=== PATIENT | male | born 1940 | race Caucasian/White ===

== ENCOUNTER → 2018-09-25 | Outpatient (CLI) | payer MEDICARE, BC ==
[~2018-09-25] MED LIST: ACTOS; ADVODART; ALBU90OI INH; ASPI81EC PO; ATOM60 PO; Aspirin EC81 MG PO; Avodart0.5 MG PO; BUDE32NIS; CALMAGZIN PO; CAND16 PO; CAND32 PO; CYCL10 PO; ERGO400 PO; EZET10 PO; FARXIGA10 MG PO; FEXO180 PO; FLUSAL1005 IH; GABA300 PO; GLIM4 PO; HYDMOR2 PO; INSULANPEN SC; LIRA0.6P SC; METF500C PO; METF850 PO; METO50ER PO; MULVITMINF PO; NITR.4SL; Nitrostat0.4 MG SL; OMEP20ER PO; ONDA8 PO; Omeprazole20 M1 PO; PRAV20 PO; Percocet 5-3251 EACH PO; Pravastatin Sod40 MG PO; Prilosec20 MG PO; RXHYDMOR2 PO; TAMS.4ER PO
[2018-09-25 10:56] LABS: BASOPHILS ABSOLUTE AUTO 0.03 K/mm3 (0.00-0.23); BASOPHILS PERCENT AUTO 1 % (0-2); EOSINOPHILS ABSOLUTE AUTO 0.08 K/mm3 (0.00-0.68); EOSINOPHILS PERCENT AUTO 1 % (0-6); Hematocrit 42.4 % (37.0-53.0); IMMATURE GRAN ABSOLUTE AUTO 0.02 K/mm3 (0.00-0.10); IMMATURE GRAN PERCENT AUTO 0 % (0-1); LYMPHOCYTES ABSOLUTE AUTO 1.08 K/mm3 (0.84-5.20); LYMPHOCYTES PERCENT AUTO 19 % (21-46); MONOCYTES ABSOLUTE AUTO 0.49 K/mm3 (0.16-1.47); MONOCYTES PERCENT AUTO 9 % (4-13); Mean Corpuscular HGB Conc 35.4 g/dL (31.5-36.5); Mean Corpuscular Volume 90 fL (80-100); Mean Platelet Volume 9.6 fL (9.1-12.4); NEUTROPHILS ABSOLUTE AUTO 3.96 K/mm3 (1.96-9.15); NEUTROPHILS PERCENT AUTO 70 % (41-73); Platelet Count 146 K/mm3 (150-400); RDW Coefficient Variation 12.3 % (11.7-14.2); Red Blood Cell Count 4.69 M/mm3 (4.30-5.90); White Blood Cell Count 5.66 K/mm3 (4.00-11.30)
[2018-09-25 11:09] LABS: Anion Gap 10 mmol/L (6-16); Blood Urea Nitrogen 15 mg/dL (8-24); Bun/Creatinine Ratio 12.9 (12.0-20.0); CO2, Blood 27 mmol/L (21-32); Calcium, Blood 9.2 mg/dL (8.5-10.1); Chloride, Blood 100 mmol/L (98-108); Creatinine, Blood 1.16 mg/dL (0.60-1.20); Glomerular Filtration Rate >60 (60-); Glucose, Blood 246 mg/dL (70-99); Potassium, Blood 4.3 mmol/L (3.5-5.5); Sodium, Blood 137 mmol/L (136-145)
[2018-09-25 11:10] LABS: Troponin I <0.015 ng/mL (0.000-0.040)
== END | disposition home or self-care (01) ==
LOC: LAB EV 10:51 → LAB SHORT 10:51
PROVIDERS: Physician Assistant Surgical
DX: R53.83 Other fatigue (principal)
CPT/HCPCS: 80048; 84484; 85025; 85379

== ENCOUNTER 2018-10-14 13:03 | Emergency (ER) | payer MEDICARE, BC ==
[~2018-10-14] VITALS: Ht 182.9 cm; Wt 97.1 kg
[~2018-10-14 13:03] MED LIST changes: -Aspirin EC81 MG PO; -Avodart0.5 MG PO; -CAND16 PO; -CYCL10 PO; -INSULANPEN SC; -METF500C PO; -METO50ER PO; -NITR.4SL; -ONDA8 PO; -Omeprazole20 M1 PO; -PRAV20 PO; -Percocet 5-3251 EACH PO
[2018-10-14] MEDS ORDERED: ATOM60 PO (13:30)
[2018-10-14] MEDS ORDERED: Aspirin EC81 MG PO (13:30)
[2018-10-14] MEDS ORDERED: Avodart0.5 MG PO (13:31)
[2018-10-14] MEDS ORDERED: CAND16 PO (13:31)
[2018-10-14] MEDS ORDERED: CYCL10 PO (13:31)
[2018-10-14] MEDS ORDERED: EZET10 PO (13:32)
[2018-10-14] MEDS ORDERED: GABA300 PO (13:32)
[2018-10-14] MEDS ORDERED: METF500C PO (13:33)
[2018-10-14] MEDS ORDERED: GLIM4 PO (13:33)
[2018-10-14] MEDS ORDERED: INSULANPEN SC (13:33)
[2018-10-14] MEDS ORDERED: ONDA8 PO (13:34)
[2018-10-14] MEDS ORDERED: METO50ER PO (13:34)
[2018-10-14] MEDS ORDERED: NITR.4SL (13:34)
[2018-10-14] MEDS ORDERED: PRAV20 PO (13:34)
[2018-10-14] MEDS ORDERED: Omeprazole20 M1 PO (13:34)
[2018-10-14] MEDS ORDERED: TAMS.4ER PO (13:35)
[2018-10-14 13:45] LABS: BASOPHILS ABSOLUTE AUTO 0.03 K/mm3 (0.00-0.23); BASOPHILS PERCENT AUTO 1 % (0-2); EOSINOPHILS PERCENT AUTO 2 % (0-6); Hematocrit 40.4 % (37.0-53.0); Hemoglobin 13.7 g/dL (13.5-17.5); IMMATURE GRAN ABSOLUTE AUTO 0.03 K/mm3 (0.00-0.10); IMMATURE GRAN PERCENT AUTO 1 % (0-1); LYMPHOCYTES PERCENT AUTO 23 % (21-46); MONOCYTES ABSOLUTE AUTO 0.59 K/mm3 (0.16-1.47); MONOCYTES PERCENT AUTO 11 % (4-13); Mean Corpuscular HGB 31.6 pg (26.0-34.0); Mean Corpuscular HGB Conc 33.9 g/dL (31.5-36.5); Mean Corpuscular Volume 93 fL (80-100); NEUTROPHILS ABSOLUTE AUTO 3.28 K/mm3 (1.96-9.15); NEUTROPHILS PERCENT AUTO 63 % (41-73); Platelet Count 150 K/mm3 (150-400); RDW Standard Deviation 41.3 fL (35.1-46.3); Red Blood Cell Count 4.33 M/mm3 (4.30-5.90); White Blood Cell Count 5.23 K/mm3 (4.00-11.30)
[2018-10-14 14:02] LABS: Alanine Aminotransfer (ALT/SGP 41 U/L (12-78); Albumin, Blood 3.5 g/dL (3.4-5.0); Albumin/Globulin Ratio 1.1 (0.8-1.8); Alk Phos 87 U/L (50-136); Anion Gap 8 mmol/L (6-16); Aspartate Aminotrans (AST/SGOT 21 U/L (12-37); Bilirubin, Total 0.3 mg/dL (0.1-1.0); Blood Urea Nitrogen 16 mg/dL (8-24); Bun/Creatinine Ratio 15.8 (12.0-20.0); CO2, Blood 26 mmol/L (21-32); Calcium, Blood 8.3 mg/dL (8.5-10.1); Chloride, Blood 103 mmol/L (98-108); Creatinine, Blood 1.01 mg/dL (0.60-1.20); Globulin, Blood 3.1 g/dL (2.2-4.0); Glomerular Filtration Rate >60 (60-); Glucose, Blood 246 mg/dL (70-99); Potassium, Blood 4.5 mmol/L (3.5-5.5); Sodium, Blood 137 mmol/L (136-145); Total Protein, Blood 6.6 g/dL (6.4-8.2)
[2018-10-14 14:06] LABS: Troponin I <0.015 ng/mL (0.000-0.040)
[2018-10-14] MEDS ORDERED: Percocet 5-3251 EACH PO (15:34)
== END 2018-10-14 16:05 | disposition home or self-care (01) ==
LOC: ER 13:03
PROVIDERS: Emergency Medicine
DX: R07.89 Other chest pain (principal); E11.65 Type 2 diabetes mellitus with hyperglycemia; J44.9 Chronic obstructive pulmonary disease, unspecified; Z88.6 Allergy status to analgesic agent; Z79.899 Other long term (current) drug therapy; Z79.84 Long term (current) use of oral hypoglycemic drugs; Z79.82 Long term (current) use of aspirin; Z87.891 Personal history of nicotine dependence
CPT/HCPCS: 71046; 80053; 83690; 84484; 85025; 85379; 93005; 93010; 96361; 96374; 96375; 99285-25; J0780; J1170; J2405; J7030

== ENCOUNTER 2019-03-10 08:22 | Day surgery (SDC) | payer MEDICARE, BC ==
[~2019-03-10] VITALS: Ht 182.9 cm; Wt 98.9 kg
[~2019-03-10 08:22] MED LIST changes: +Aspirin EC81 MG PO; +Avodart0.5 MG PO; +CAND16 PO; +CYCL10 PO; +INSULANPEN SC; +METF500C PO; +METO50ER PO; +Metformin HCl850 MG PO; +NITR.4SL; +ONDA8 PO; +Omeprazole20 M1 PO; +PRAV20 PO; +Percocet 5-3251 EACH PO; +Pravachol40 MG PO
== END 2019-03-10 11:27 | disposition home or self-care (01) ==
LOC: ORSCSDS 08:22
PROVIDERS: Internal Medicine Gastroenterology
PROC: 0DB68ZX Excision of Stomach, Via Natural or Artificial Opening Endoscopic, Diagnostic (ICD-10-PCS; principal; 2019-03-10 10:00)
PROC: 0DBN8ZX Excision of Sigmoid Colon, Via Natural or Artificial Opening Endoscopic, Diagnostic (ICD-10-PCS; principal; 2019-03-10 10:00)
PROC: 0DBH8ZX Excision of Cecum, Via Natural or Artificial Opening Endoscopic, Diagnostic (ICD-10-PCS; principal; 2019-03-10 10:00)
PROC: 0DBK8ZX Excision of Ascending Colon, Via Natural or Artificial Opening Endoscopic, Diagnostic (ICD-10-PCS; principal; 2019-03-10 10:00)
DX: R19.7 Diarrhea, unspecified (principal); D12.0 Benign neoplasm of cecum; D12.2 Benign neoplasm of ascending colon; K63.5 Polyp of colon; K55.20 Angiodysplasia of colon without hemorrhage; K57.30 Diverticulosis of large intestine without perforation or abscess without bleeding; Z86.010 Personal history of colon polyps; K22.70 Barrett's esophagus without dysplasia; K29.70 Gastritis, unspecified, without bleeding; K21.9 Gastro-esophageal reflux disease without esophagitis; K31.7 Polyp of stomach and duodenum; I10 Essential (primary) hypertension; E11.9 Type 2 diabetes mellitus without complications; Z87.891 Personal history of nicotine dependence; Z79.899 Other long term (current) drug therapy; Z79.82 Long term (current) use of aspirin
CPT/HCPCS: 82947; 88305; 88342; J2704; J7120

== ENCOUNTER 2019-09-06 07:28 | Emergency (ER) | payer MEDICARE, BC ==
[~2019-09-06] VITALS: Ht 182.9 cm; Wt 99.8 kg
[~2019-09-06 07:28] MED LIST changes: +INSDET100 SC; -INSULANPEN SC
[2019-09-06] MEDS ORDERED: ATOMOXETINE HCL80 MG PO (07:57)
[2019-09-06 08:18] LABS: Source, Urine Voided
[2019-09-06 08:23] LABS: BASOPHILS ABSOLUTE AUTO 0.04 K/mm3 (0.00-0.23); BASOPHILS PERCENT AUTO 1 % (0-2); EOSINOPHILS ABSOLUTE AUTO 0.11 K/mm3 (0.00-0.68); EOSINOPHILS PERCENT AUTO 2 % (0-6); Hematocrit 45.4 % (37.0-53.0); Hemoglobin 15.7 g/dL (13.5-17.5); IMMATURE GRAN ABSOLUTE AUTO 0.02 K/mm3 (0.00-0.10); IMMATURE GRAN PERCENT AUTO 0 % (0-1); LYMPHOCYTES ABSOLUTE AUTO 1.03 K/mm3 (0.84-5.20); LYMPHOCYTES PERCENT AUTO 16 % (21-46); MONOCYTES ABSOLUTE AUTO 0.53 K/mm3 (0.16-1.47); MONOCYTES PERCENT AUTO 8 % (4-13); Mean Corpuscular HGB 31.6 pg (26.0-34.0); Mean Corpuscular HGB Conc 34.6 g/dL (31.5-36.5); Mean Corpuscular Volume 91 fL (80-100); NEUTROPHILS PERCENT AUTO 73 % (41-73); Platelet Count 155 K/mm3 (150-400); RDW Coefficient Variation 12.1 % (11.7-14.2); Red Blood Cell Count 4.97 M/mm3 (4.30-5.90); White Blood Cell Count 6.43 K/mm3 (4.00-11.30)
[2019-09-06 08:25] LABS: Blood, Urine Neg (Neg); Glucose Qualitative, Urine 3+ (Neg); Ketones, Urine Neg (Neg); Leukocyte Esterase, Urine Neg (Neg); Nitrite, Urine Pos (Neg); Protein, Urine 2+ (Neg); Urobilinogen, Urine 2+ (Normal)
[2019-09-06 08:30] LABS: Appearance, Urine Hazy (Clear); Bilirubin, Urine 1+ (Neg); Color, Urine Amber (P-Yellow)
[2019-09-06 08:36] LABS: Bacteria Rare /hpf; Red Blood Cells, Urine Not Seen /hpf (0-2); Squamous Epithelial Cells Rare /hpf (Few); White Blood Cells, Urine 0-2 /hpf (0-5)
[2019-09-06 08:48] LABS: Alanine Aminotransfer (ALT/SGP 67 U/L (12-78); Albumin, Blood 3.6 g/dL (3.4-5.0); Alk Phos 86 U/L (50-136); Anion Gap 10 mmol/L (6-16); Aspartate Aminotrans (AST/SGOT 45 U/L (12-37); Bilirubin, Total 0.5 mg/dL (0.1-1.0); Blood Urea Nitrogen 20 mg/dL (8-24); Bun/Creatinine Ratio 19.2 (12.0-20.0); CO2, Blood 23 mmol/L (21-32); Chloride, Blood 103 mmol/L (98-108); Creatinine, Blood 1.04 mg/dL (0.60-1.20); Globulin, Blood 3.7 g/dL (2.2-4.0); Glomerular Filtration Rate >60 (60-); Glucose, Blood 291 mg/dL (70-99); Potassium, Blood 4.6 mmol/L (3.5-5.5); Sodium, Blood 136 mmol/L (136-145); Total Protein, Blood 7.3 g/dL (6.4-8.2)
[2019-09-06] MEDS ORDERED: HYDR1TAB94 PO (09:22)
[2019-09-06] MEDS ORDERED: Cefdinir250 MG/5 M PO (09:22)
== END 2019-09-06 10:16 | disposition home or self-care (01) ==
LOC: ER 07:28
PROVIDERS: Emergency Medicine
DX: R10.31 Right lower quadrant pain (principal); Z88.8 Allergy status to other drugs, medicaments and biological substances; Z79.899 Other long term (current) drug therapy; Z79.82 Long term (current) use of aspirin; Z79.4 Long term (current) use of insulin; E11.9 Type 2 diabetes mellitus without complications; J44.9 Chronic obstructive pulmonary disease, unspecified; Z87.891 Personal history of nicotine dependence
CPT/HCPCS: 36415; 74176; 80053; 81001; 85025; 87086; 96361; 96365; 99284-25; A9270-GY; J0696; J7120

== ENCOUNTER → 2021-07-26 | Outpatient (CLI) | payer MEDICARE, BC ==
[~2021-07-26] MED LIST changes: +ATOMOXETINE HCL80 MG PO; +Cefdinir250 MG/5 M PO; +HYDR1TAB94 PO
== END | disposition home or self-care (01) ==
LOC: LAB 11:23 → LAB SHORT 11:23
DX: J32.9 Chronic sinusitis, unspecified (principal)
CPT/HCPCS: 87070; 87205

== ENCOUNTER → 2022-02-19 | Outpatient (CLI) | payer MEDICARE, BC | LOC: LAB SHORT 15:15 → PLD 15:15 → LAB 15:15 | DX: D48.5 Neoplasm of uncertain behavior of skin (principal) | CPT/HCPCS: 88305 ==

== ENCOUNTER 2022-03-18 09:13 | Day surgery (SDC) | payer MEDICARE, BC | END 2022-03-18 09:42 | disposition home or self-care (01) | LOC: ORSCSDS 09:13 | DX: K22.70 Barrett's esophagus without dysplasia (principal); Z53.9 Procedure and treatment not carried out, unspecified reason | CPT/HCPCS: J2704; J7120 ==

== ENCOUNTER → 2022-05-17 | Outpatient (CLI) | payer MEDICARE, BC ==
[2022-05-17 08:32] LABS: BASOPHILS ABSOLUTE AUTO 0.05 K/mm3 (0.00-0.23); BASOPHILS PERCENT AUTO 1 % (0-2); EOSINOPHILS ABSOLUTE AUTO 0.63 K/mm3 (0.00-0.68); EOSINOPHILS PERCENT AUTO 8 % (0-6); Hematocrit 43.4 % (37.0-53.0); Hemoglobin 15.3 g/dL (13.5-17.5); IMMATURE GRAN ABSOLUTE AUTO 0.06 K/mm3 (0.00-0.10); IMMATURE GRAN PERCENT AUTO 1 % (0-1); LYMPHOCYTES ABSOLUTE AUTO 1.19 K/mm3 (0.84-5.20); LYMPHOCYTES PERCENT AUTO 15 % (21-46); MONOCYTES ABSOLUTE AUTO 0.71 K/mm3 (0.16-1.47); MONOCYTES PERCENT AUTO 9 % (4-13); Mean Corpuscular HGB 32.3 pg (26.0-34.0); Mean Corpuscular HGB Conc 35.3 g/dL (31.5-36.5); Mean Corpuscular Volume 92 fL (80-100); Mean Platelet Volume 9.6 fL (9.1-12.4); NEUTROPHILS ABSOLUTE AUTO 5.59 K/mm3 (1.96-9.15); NEUTROPHILS PERCENT AUTO 68 % (41-73); Platelet Count 144 K/mm3 (150-400); RDW Coefficient Variation 13.4 % (11.7-14.2); RDW Standard Deviation 44.8 fL (35.1-46.3); Red Blood Cell Count 4.73 M/mm3 (4.30-5.90); White Blood Cell Count 8.23 K/mm3 (4.00-11.30)
[2022-05-17 08:40] LABS: Albumin, Blood 3.7 g/dL (3.4-5.0); Bilirubin, Total 0.6 mg/dL (0.1-1.0); Bun/Creatinine Ratio 7.9 (12.0-20.0); Creatinine, Blood 1.14 mg/dL (0.60-1.20); Globulin, Blood 3.7 g/dL (2.2-4.0); Potassium, Blood 3.9 mmol/L (3.5-5.5); Total Protein, Blood 7.4 g/dL (6.4-8.2)
== END ==
LOC: LAB SHORT 08:24 → LAB 08:24
PROVIDERS: Physician Assistant
DX: R06.00 Dyspnea, unspecified (principal)
CPT/HCPCS: 80053; 83880; 84443; 85025; 85379

== ENCOUNTER 2022-08-31 12:14 | Emergency (ER) | payer MEDICARE, BC ==
[~2022-08-31] VITALS: Ht 182.9 cm; Wt 88.0 kg
[2022-08-31] MEDS ORDERED: Neurontin 300300 MG PO (15:23)
== END 2022-08-31 15:35 | disposition home or self-care (01) ==
LOC: ER 12:14
DX: B02.9 Zoster without complications (principal); J44.9 Chronic obstructive pulmonary disease, unspecified; E11.9 Type 2 diabetes mellitus without complications; Z88.8 Allergy status to other drugs, medicaments and biological substances; Z79.82 Long term (current) use of aspirin; Z79.4 Long term (current) use of insulin; Z79.899 Other long term (current) drug therapy; Z79.84 Long term (current) use of oral hypoglycemic drugs; Z87.891 Personal history of nicotine dependence
CPT/HCPCS: 99283

== ENCOUNTER 2024-03-09 14:32 | Inpatient (IN) | payer MEDICARE, BC ==
[~2024-03-09] VITALS: Ht 182.9 cm; Wt 88.5 kg
[~2024-03-09 14:32] MED LIST changes: -NITR.4SL; +NITR.4SL SL; +Neurontin 300300 MG PO; -Omeprazole20 M1 PO
[2024-03-09 15:00] LABS: BASOPHILS PERCENT AUTO 1 % (0-2); EOSINOPHILS ABSOLUTE AUTO 1.06 K/mm3 (0.00-0.68); EOSINOPHILS PERCENT AUTO 7 % (0-6); Hematocrit 45.5 % (37.0-53.0); Hemoglobin 15.1 g/dL (13.5-17.5); IMMATURE GRAN ABSOLUTE AUTO 0.16 K/mm3 (0.00-0.10); IMMATURE GRAN PERCENT AUTO 1 % (0-1); LYMPHOCYTES PERCENT AUTO 11 % (21-46); MONOCYTES ABSOLUTE AUTO 1.75 K/mm3 (0.16-1.47); MONOCYTES PERCENT AUTO 12 % (4-13); Mean Corpuscular HGB 33.6 pg (26.0-34.0); Mean Corpuscular HGB Conc 33.2 g/dL (31.5-36.5); Mean Corpuscular Volume 101 fL (80-100); Mean Platelet Volume 9.6 fL (9.1-12.4); NEUTROPHILS PERCENT AUTO 68 % (41-73); Platelet Count 196 K/mm3 (150-400); RDW Coefficient Variation 14.8 % (11.7-14.2); RDW Standard Deviation 54.9 fL (35.1-46.3); White Blood Cell Count 15.07 K/mm3 (4.00-11.30)
[2024-03-09 15:18] LABS: Albumin/Globulin Ratio 0.7 (0.8-1.8); Bilirubin, Total 1.2 mg/dL (0.1-1.0); Bun/Creatinine Ratio 9.5 (12.0-20.0); Calcium, Blood 8.9 mg/dL (8.5-10.1); Creatinine, Blood 0.95 mg/dL (0.60-1.20); Globulin, Blood 4.5 g/dL (2.2-4.0); Potassium, Blood 3.9 mmol/L (3.5-5.5); Total Protein, Blood 7.5 g/dL (6.4-8.2)
[2024-03-09 17:09] LABS: Influenza A, PCR NEGATIVE (NEGATIVE); Influenza B, PCR NEGATIVE (NEGATIVE); Resp Syncytial Virus, PCR NEGATIVE (NEGATIVE); SARS-Cov-2 (COVID-19) PCR, MMC NEGATIVE (NEGATIVE)
[2024-03-09] MEDS ORDERED: NS 1,000 ML IV SCH ×2 (17:35→19:00)
[2024-03-09 17:52] LABS: Base Excess Venous 0.9 mmol/L; Bicarbonate Venous 23.8 mmol/L (24.0-30.0); PCO2 Venous 57.4 mmHg (38-42); pH Blood Venous 7.29 (7.34-7.37)
[2024-03-09] MEDS ORDERED: Albuterol 2.5 MG/3 ML VIAL INH SCH (18:05)
[2024-03-09] MEDS ORDERED: PredniSONE 20 MG Tab PO ONE (18:20)
[2024-03-09] MEDS ORDERED: Azithromycin 500 MG in NS 250 ML IV ONE (18:25)
[2024-03-09] MEDS ORDERED: OxyCODONE HCL 5 MG TAB PO PRN (19:00)
[2024-03-09] MEDS ORDERED: Albuterol 2.5 MG/3 ML VIAL INH PRN (19:05)
[2024-03-09] MEDS ORDERED: Ipratropium/Albuterol SulF 2.5-0.5MG/3 ML Amp INH SCH (19:05)
[2024-03-09] MEDS ORDERED: Ondansetron HCl 2 MG / ML 2ML Vial IV PRN (19:05)
[2024-03-09] MEDS ORDERED: Acetaminophen 325 MG TABLET PO PRN (19:05)
[2024-03-09] MEDS ORDERED: NS 1,000 ML IV ONE (20:00)
[2024-03-09] MEDS ORDERED: Sennosides 8.6 MG Tab PO SCH (21:00)
[2024-03-09] MEDS ORDERED: Omeprazole 20 MG CapCR PO SCH (21:00)
[2024-03-09] MEDS ORDERED: Gabapentin 300 MG Cap PO SCH ×2 (21:00)
[2024-03-09] MEDS ORDERED: Insulin Glargine-Yfgn 100 Unit/mL 3 ML SYR SC SCH (21:00)
[2024-03-09 21:24] VITALS: BP 130/81
[2024-03-09] MEDS ORDERED: CYMBALTA30 M2 PO (22:10)
[2024-03-09] MEDS ORDERED: TRESIBA FL100 UNIT/2 SC (22:12)
[2024-03-09] MEDS ORDERED: CYCL10 PO (22:13)
[2024-03-09] MEDS ORDERED: ROSUVASTATIN CAL5 MG PO (22:14)
[2024-03-09] MEDS ORDERED: OFEV150 MG PO (22:15)
[2024-03-09] MEDS ORDERED: Lyrica300 MG PO (22:15)
[2024-03-09] MEDS ORDERED: METFORMIN HCL500 M3 PO (22:17)
[2024-03-09] MEDS ORDERED: Pregabalin 75 MG Cap PO SCH (23:00)
[2024-03-10 02:47] VITALS: BP 143/96
[2024-03-10 05:08] LABS: BASOPHILS ABSOLUTE AUTO 0.02 K/mm3 (0.00-0.23); BASOPHILS PERCENT AUTO 0 % (0-2); EOSINOPHILS ABSOLUTE AUTO 0.02 K/mm3 (0.00-0.68); EOSINOPHILS PERCENT AUTO 0 % (0-6); Hematocrit 41.3 % (37.0-53.0); Hemoglobin 13.7 g/dL (13.5-17.5); IMMATURE GRAN ABSOLUTE AUTO 0.14 K/mm3 (0.00-0.10); IMMATURE GRAN PERCENT AUTO 2 % (0-1); LYMPHOCYTES ABSOLUTE AUTO 0.86 K/mm3 (0.84-5.20); LYMPHOCYTES PERCENT AUTO 9 % (21-46); MONOCYTES ABSOLUTE AUTO 0.23 K/mm3 (0.16-1.47); MONOCYTES PERCENT AUTO 3 % (4-13); Mean Corpuscular HGB 33.3 pg (26.0-34.0); Mean Corpuscular HGB Conc 33.2 g/dL (31.5-36.5); Mean Corpuscular Volume 100 fL (80-100); Mean Platelet Volume 9.8 fL (9.1-12.4); NEUTROPHILS ABSOLUTE AUTO 7.98 K/mm3 (1.96-9.15); NEUTROPHILS PERCENT AUTO 86 % (41-73); Platelet Count 175 K/mm3 (150-400); RDW Coefficient Variation 14.5 % (11.7-14.2); RDW Standard Deviation 53.4 fL (35.1-46.3); Red Blood Cell Count 4.12 M/mm3 (4.30-5.90); White Blood Cell Count 9.25 K/mm3 (4.00-11.30)
[2024-03-10 05:20] LABS: International Normalized Ratio 1.01; Prothrombin Time Results 10.8 Sec (9.7-11.5)
[2024-03-10 05:38] LABS: Magnesium, Blood 2.3 mg/dL (1.6-2.4)
[2024-03-10 05:39] LABS: Albumin, Blood 2.6 g/dL (3.4-5.0); Albumin/Globulin Ratio 0.7 (0.8-1.8); Bilirubin, Total 1.1 mg/dL (0.1-1.0); Bun/Creatinine Ratio 15.9 (12.0-20.0); Calcium, Blood 8.4 mg/dL (8.5-10.1); Creatinine, Blood 0.82 mg/dL (0.60-1.20); Globulin, Blood 3.8 g/dL (2.2-4.0); Potassium, Blood 4.8 mmol/L (3.5-5.5); Total Protein, Blood 6.4 g/dL (6.4-8.2)
[2024-03-10] MEDS ORDERED: Insulin Human Lispro 100 Units/ML 3ML Syringe SC SCH ×2 (07:30→17:20)
[2024-03-10 07:49] VITALS: BP 143/73
--- NOTE | 2024-03-10 07:54 | NUR ---
SHIFT SUMMARY PT ARRIVED TO ROOM 310 FROM ER VIA GURNEY AROUND 2129. PT TRANSFERED TO HOSPITAL BED, SBA. PT USES A CANE AT BASELINE. PT IS A&OX4, FORGETFUL AT TIMES. PT IS VERY ANXIOUS. VSS, HR TACHY AT 103 BPM, ON 2L NC. C/O GENERALIZED PAIN, MANAGED WITH TYLENOL. TOLERATING A CONS CARB DIET. ELEVATED BG, >300. X1 ASSIST TO BR. PT HAS URGENCY AND IS OCCASIONALLY INCONTINENT OF URINE, BRIEF IN PLACE. NO BM THIS SHIFT. BED IN LOWEST POSITION, CALL LIGHT WITHIN REACH. BED ALARM SET FOR PT'S SAFETY.
[2024-03-10] MEDS ORDERED: Dutasteride 0.5 MG Cap PO SCH (09:00)
[2024-03-10] MEDS ORDERED: Pravastatin Sodium 20 MG Tab PO SCH (09:00)
[2024-03-10] MEDS ORDERED: DULoxetine HCL 60 MG Capsule DR PO SCH (09:00)
[2024-03-10] MEDS ORDERED: Tamsulosin HCl 0.4 MG Cap PO SCH (09:00)
[2024-03-10] MEDS ORDERED: Atomoxetine HCL 40 MG Cap PO SCH (09:00)
[2024-03-10] MEDS ORDERED: Ezetimibe 10 MG Tab PO SCH (09:00)
[2024-03-10] MEDS ORDERED: Metoprolol Succinate 50 MG TABCR PO SCH (09:00)
[2024-03-10] MEDS ORDERED: Losartan Potassium 50 MG Tab PO SCH (09:00)
[2024-03-10] MEDS ORDERED: Rosuvastatin Calcium 10 MG Tab PO SCH (09:00)
--- NOTE | 2024-03-10 10:05 | NUR ---
PT RETURNED FROM THORACENTESIS- PT STATES HE FEELS A LOT BETTER. PER REPORT FROM IMAGING 1L OF FLUID WAS DRAINED FROM THE PT LEFT CHEST. FLUID SENT TO LAB FOR CYTOLOGY AND OTHER LABS. SPOKE TO GRAIN MILL WORKER AFTER COLLECTING ORDER FOR PH THEY HAVE THE SAMPLE AND ALL THE ORDERS FOR IT.
[2024-03-10 10:11] LABS: Automated BF RBC Count 0.042 M/mm3 (0-0); Automated BF WBC Count 0.905 K/mm3 (0-999)
[2024-03-10 10:19] LABS: Body Fluid WBC Count 905 /mm3 (0-999); RBC Count, Body Fluid 42000 /mm3 (0-0)
[2024-03-10 10:25] LABS: Lactate Dehydrogenase, Body Fl 211 U/L
[2024-03-10 10:45] LABS: Protein, Body Fluid 4.6 g/dL
[2024-03-10 11:17] LABS: Total Cell Count, Body Fluid 100
[2024-03-10 11:21] LABS: Appearance, Body Fluid Cloudy (Clear); Color, Body Fluid Red (None-Yellow)
[2024-03-10] MEDS ORDERED: Insulin Glargine-Yfgn 100 Unit/mL 3 ML SYR SC ONE (12:00)
--- NOTE | 2024-03-10 12:04 | NUR ---
SPOKE TO DR BENAVIDES- PT BG 353. PT BG HAS BEEN OVER 300 ON ALL CHECKS. SHE IS AWARE AND IS ORDERING ADDITIONAL DOSE OF LANTUS NOW.
[2024-03-10 15:21] VITALS: BP 96/60
[2024-03-10 15:45] VITALS: BP 96/56
--- NOTE | 2024-03-10 15:46 | NUR ---
CALLED DR DANIELS- PT BP ON EVENING VITALS WAS FAR BELOW WHAT IT HAS BEEN SINCE ADMIT, SE REQUESTED A MANUAL BP DONE. MANUAL BP 96/56. PT ASYMPTOMATIC. THE PT IS POST THORACENTESIS, WHERE 1L OF FLUID WAS REMOVED, WAS NOTIFIED. CALLED DR PUGH BACK AFTER MANUAL BP AWAITING CALL BACK.
[2024-03-10] MEDS ORDERED: Omeprazole 20 MG CapCR PO SCH (16:30)
[2024-03-10 16:56] VITALS: BP 99/59
--- NOTE | 2024-03-10 17:01 | NUR ---
CALLED DR DANIELS- PT SBP PERSISTENTLY LESS THAN 100, BG IS PERSISTENTLY GREATER THAN 300. 363 THIS EVENING AFTER AN ADDITIONAL 15 UNITS OF LANTUS. AWARE AND IS PLACING ORDERS NOW.
[2024-03-10] MEDS ORDERED: Insulin Glargine-Yfgn 100 Unit/mL 3 ML SYR SC SCH (18:00)
--- NOTE | 2024-03-10 18:18 | NUR ---
SHIFT SUMMARY- PT ALERT AND ORIENTED WITH SOME OCCASSIONAL CONFUSION AND A FLIGHT OF IDEAS WITH RAMBLING SPEECH. PT WENT FOR A THORACENTESIS EARLIER TODAY, PLAN IS FOR A US GUIDED NEEDLE POKE BIOPSY TOMORROW. PT HAS ORDERS FOR NPO AT NOON. BG'S HAVE BEEN HIGH, INSULIN DOSES CHANGED SEE EMAR FOR DETAILS. BED ALARM USED FOR SAFETY, PT IN BED, CALL LIGHT IN REACH NO S&S OF DISTRESS NOTED.
[2024-03-10 20:23] VITALS: BP 111/56
[2024-03-11 04:40] VITALS: BP 114/70
[2024-03-11 04:57] LABS: BASOPHILS ABSOLUTE AUTO 0.03 K/mm3 (0.00-0.23); BASOPHILS PERCENT AUTO 0 % (0-2); EOSINOPHILS ABSOLUTE AUTO 0.64 K/mm3 (0.00-0.68); EOSINOPHILS PERCENT AUTO 5 % (0-6); Hematocrit 36.4 % (37.0-53.0); Hemoglobin 12.1 g/dL (13.5-17.5); IMMATURE GRAN ABSOLUTE AUTO 0.11 K/mm3 (0.00-0.10); IMMATURE GRAN PERCENT AUTO 1 % (0-1); LYMPHOCYTES ABSOLUTE AUTO 1.53 K/mm3 (0.84-5.20); LYMPHOCYTES PERCENT AUTO 11 % (21-46); MONOCYTES ABSOLUTE AUTO 1.56 K/mm3 (0.16-1.47); MONOCYTES PERCENT AUTO 11 % (4-13); Mean Corpuscular HGB 33.8 pg (26.0-34.0); Mean Corpuscular HGB Conc 33.2 g/dL (31.5-36.5); Mean Corpuscular Volume 102 fL (80-100); Mean Platelet Volume 9.9 fL (9.1-12.4); NEUTROPHILS ABSOLUTE AUTO 10.01 K/mm3 (1.96-9.15); NEUTROPHILS PERCENT AUTO 72 % (41-73); Platelet Count 161 K/mm3 (150-400); RDW Coefficient Variation 15.1 % (11.7-14.2); RDW Standard Deviation 55.8 fL (35.1-46.3); Red Blood Cell Count 3.58 M/mm3 (4.30-5.90); White Blood Cell Count 13.88 K/mm3 (4.00-11.30)
[2024-03-11 05:14] LABS: International Normalized Ratio 1.02; Prothrombin Time Results 10.9 Sec (9.7-11.5)
[2024-03-11 05:22] LABS: Albumin, Blood 2.5 g/dL (3.4-5.0); Albumin/Globulin Ratio 0.8 (0.8-1.8); Bilirubin, Total 0.9 mg/dL (0.1-1.0); Bun/Creatinine Ratio 14.9 (12.0-20.0); Calcium, Blood 8.3 mg/dL (8.5-10.1); Creatinine, Blood 1.01 mg/dL (0.60-1.20); Globulin, Blood 3.3 g/dL (2.2-4.0); Potassium, Blood 3.6 mmol/L (3.5-5.5); Total Protein, Blood 5.8 g/dL (6.4-8.2)
--- NOTE | 2024-03-11 05:53 | NUR ---
SHIFT SUMMARY: Pt is admitted for hypoxia and is a FULL code. Is alert and able to make needs known. ADLs have been 1p SBA. denies pain or discomfort when asked.
[2024-03-11] MEDS ORDERED: Insulin Human Lispro 100 Units/ML 3ML Syringe SC SCH (07:30)
[2024-03-11 07:34] VITALS: BP 97/49
[2024-03-11 18:55] VITALS: BP 120/71
--- NOTE | 2024-03-11 18:57 | NUR ---
ROLDAN NASHSHARMILA- PT WENT FOR LUNG MASS BIOPSY TODAY. UPON RETURN HE WAS ASSISTED TO THE BATHROOM BY A STAFF MEMBER. THE PT HAS BEEN IN BED SINCE THE PROCEDURE. VSS AT THIS TIME. PT CURRENTLY IN BED, CALL LIGHT IN REACH NO S&S OF DISTRESS NOTED. PT IS AWARE AT THE FIRST SIGN OF SOB HE IS TO CALL STAFF.
[2024-03-12 03:32] VITALS: BP 136/72
[2024-03-12 05:12] LABS: BASOPHILS ABSOLUTE AUTO 0.04 K/mm3 (0.00-0.23); BASOPHILS PERCENT AUTO 0 % (0-2); EOSINOPHILS ABSOLUTE AUTO 0.76 K/mm3 (0.00-0.68); EOSINOPHILS PERCENT AUTO 8 % (0-6); Hematocrit 35.9 % (37.0-53.0); Hemoglobin 11.7 g/dL (13.5-17.5); IMMATURE GRAN ABSOLUTE AUTO 0.07 K/mm3 (0.00-0.10); IMMATURE GRAN PERCENT AUTO 1 % (0-1); LYMPHOCYTES ABSOLUTE AUTO 1.15 K/mm3 (0.84-5.20); LYMPHOCYTES PERCENT AUTO 12 % (21-46); MONOCYTES ABSOLUTE AUTO 1.16 K/mm3 (0.16-1.47); MONOCYTES PERCENT AUTO 12 % (4-13); Mean Corpuscular HGB 33.1 pg (26.0-34.0); Mean Corpuscular HGB Conc 32.6 g/dL (31.5-36.5); Mean Corpuscular Volume 102 fL (80-100); Mean Platelet Volume 9.8 fL (9.1-12.4); NEUTROPHILS ABSOLUTE AUTO 6.38 K/mm3 (1.96-9.15); NEUTROPHILS PERCENT AUTO 67 % (41-73); Platelet Count 150 K/mm3 (150-400); RDW Coefficient Variation 14.8 % (11.7-14.2); RDW Standard Deviation 55.6 fL (35.1-46.3); Red Blood Cell Count 3.53 M/mm3 (4.30-5.90); White Blood Cell Count 9.56 K/mm3 (4.00-11.30)
[2024-03-12 05:44] LABS: Albumin, Blood 2.4 g/dL (3.4-5.0); Albumin/Globulin Ratio 0.7 (0.8-1.8); Bilirubin, Total 0.9 mg/dL (0.1-1.0); Bun/Creatinine Ratio 10.2 (12.0-20.0); Calcium, Blood 8.4 mg/dL (8.5-10.1); Creatinine, Blood 0.88 mg/dL (0.60-1.20); Globulin, Blood 3.5 g/dL (2.2-4.0); Potassium, Blood 3.6 mmol/L (3.5-5.5); Total Protein, Blood 5.9 g/dL (6.4-8.2)
[2024-03-12 07:06] VITALS: BP 139/96
[2024-03-12] MEDS ORDERED: Enoxaparin 40 MG/0.4 ML SYR SC SCH (09:00)
[2024-03-12] MEDS ORDERED: SENNA LAXATIVE8.6 MG PO (12:31)
[2024-03-12 14:08] VITALS: BP 112/66
--- NOTE | 2024-03-12 16:42 | NUR ---
DISCHARGE NOTE- PT AND SPOUSE WERE GIVEN VERBAL AND WRITTEN DISCHARGE INSTRUCTIONS AND ACKNOWLEDGED UNDERSTANDING OF THEM. PT IV DC'D PRIOR TO DISCHARGE. PT AND SPOUSE ESCORTED OUT VIA WC. NO S&S OF DISTRESS NOTED AT THE TIME OF DISCHARGE.
[2024-03-13] MEDS ORDERED: Enoxaparin 40 MG/0.4 ML SYR SC SCH (16:00)
== END 2024-03-12 14:33 | disposition home or self-care (01) | DRG 180 ==
LOC: ER 14:32 → MEDS 14:33 → ENPENDDIS 03-12 13:03 → MEDS 03-12 14:33
PROVIDERS: Emergency Medicine; Family Medicine; Nurse Practitioner Acute Care; Student in an Organized Health Care Education/Training Program; ADMIT Student in an Organized Health Care Education/Training Program
PROC: 0W9B3ZZ Drainage of Left Pleural Cavity, Percutaneous Approach (ICD-10-PCS; 2024-03-10)
PROC: 0BBG3ZX Excision of Left Upper Lung Lobe, Percutaneous Approach, Diagnostic (ICD-10-PCS; principal; 2024-03-11)
DX: C34.12 Malignant neoplasm of upper lobe, left bronchus or lung (principal); J96.01 Acute respiratory failure with hypoxia; J91.0 Malignant pleural effusion; C85.10 Unspecified B-cell lymphoma, unspecified site; J44.1 Chronic obstructive pulmonary disease with (acute) exacerbation; C91.11 Chronic lymphocytic leukemia of B-cell type in remission; J84.112 Idiopathic pulmonary fibrosis; I10 Essential (primary) hypertension; N40.0 Benign prostatic hyperplasia without lower urinary tract symptoms; E11.65 Type 2 diabetes mellitus with hyperglycemia; K21.9 Gastro-esophageal reflux disease without esophagitis; Z88.8 Allergy status to other drugs, medicaments and biological substances; Z88.6 Allergy status to analgesic agent; Z79.82 Long term (current) use of aspirin; Z79.4 Long term (current) use of insulin; Z79.84 Long term (current) use of oral hypoglycemic drugs; Z87.891 Personal history of nicotine dependence
CPT/HCPCS: 0241U; 32408; 32555; 36415; 71045; 71046; 71260; 77012; 80053; 82803; 82947; 83605; 83615; 83735; 83880; 83986; 84157; 84484; 85025; 85610; 85730; 87070; 87205; 88305; 89051; 93005; 93010; 94640; 94664; 94760; 94762; 96361; 96374-59; 97110; 97161; 97530; 99285-25; A9270; G0378; J0456; J1815; J7030; J7050; J7512; Q9967

== ENCOUNTER 2024-03-30 15:57 | Inpatient (IN) | payer OTHER, MEDICARE, BC ==
[~2024-03-30] VITALS: Ht 182.9 cm; Wt 71.0 kg
[~2024-03-30 15:57] MED LIST changes: +CYMBALTA30 M2 PO; +Lyrica300 MG PO; +METFORMIN HCL500 M3 PO; +OFEV150 MG PO; +ROSUVASTATIN CAL5 MG PO; +SENNA LAXATIVE8.6 MG PO; +TRESIBA FL100 UNIT/2 SC
[2024-03-30] MEDS ORDERED: Ondansetron HCl 2 MG / ML 2ML Vial IV PRN ×2 (16:20→20:00)
[2024-03-30] MEDS ORDERED: NS 1,000 ML IV SCH (16:20)
[2024-03-30 16:31] LABS: Hematocrit 26.9 % (37.0-53.0); Hemoglobin 8.8 g/dL (13.5-17.5); Mean Corpuscular HGB Conc 32.7 g/dL (31.5-36.5); Mean Corpuscular Volume 101 fL (80-100); Mean Platelet Volume 11.4 fL (9.1-12.4); RDW Coefficient Variation 14.2 % (11.7-14.2); RDW Standard Deviation 51.9 fL (35.1-46.3); Red Blood Cell Count 2.67 M/mm3 (4.30-5.90); White Blood Cell Count 2.82 K/mm3 (4.00-11.30)
[2024-03-30 16:38] LABS: Platelet Count 29 K/mm3 (150-400)
[2024-03-30 16:42] LABS: Albumin, Blood 2.3 g/dL (3.4-5.0); Albumin/Globulin Ratio 0.5 (0.8-1.8); Bilirubin, Total 2.7 mg/dL (0.1-1.0); Bun/Creatinine Ratio 58.9 (12.0-20.0); Calcium, Blood 8.9 mg/dL (8.5-10.1); Creatinine, Blood 1.24 mg/dL (0.60-1.20); Globulin, Blood 4.2 g/dL (2.2-4.0); Total Protein, Blood 6.5 g/dL (6.4-8.2)
[2024-03-30 17:00] LABS: BAND PERCENT MAN 5 % (0-8); BASOPHILS PERCENT MAN 0 % (0-2); EOSINOPHILS ABSOLUTE MAN 0.05 K/mm3 (0.00-0.68); EOSINOPHILS PERCENT MAN 2 % (0-6); LYMPHOCYTES ABSOLUTE MAN 0.39 K/mm3 (0.84-5.20); LYMPHOCYTES PERCENT MAN 14 % (21-46); MONOCYTES ABSOLUTE MAN 0.02 K/mm3 (0.16-1.47); MONOCYTES PERCENT MAN 1 % (4-13); NEUTROPHILS ABSOLUTE MAN 2.34 K/mm3 (1.96-9.15); SEG NEUTROPHILS PERCENT MAN 78 % (41-73); TOTAL CELLS COUNTED 100
[2024-03-30 18:08] LABS: Influenza A, PCR NEGATIVE (NEGATIVE); Influenza B, PCR NEGATIVE (NEGATIVE); Resp Syncytial Virus, PCR NEGATIVE (NEGATIVE); SARS-Cov-2 (COVID-19) PCR, MMC NEGATIVE (NEGATIVE)
[2024-03-30] MEDS ORDERED: Pantoprazole Sodium 40 MG Injection IV ONE (18:10)
[2024-03-30] MEDS ORDERED: Lactated Ringer's 1,000 ML IV SCH (20:00)
[2024-03-30] MEDS ORDERED: Acetaminophen 325 MG TABLET PO PRN (20:00)
[2024-03-30] MEDS ORDERED: Acetaminophen 650 MG Supp PR PRN (20:05)
[2024-03-30] MEDS ORDERED: Pantoprazole Sodium 40 MG in NS 50 ML IV SCH (20:10)
[2024-03-30 20:31] LABS: International Normalized Ratio 1.13
[2024-03-30 20:32] LABS: Phosphorus, Blood 4.1 mg/dL (2.5-4.9); Uric Acid, Blood 9.2 mg/dL (3.5-7.2)
[2024-03-30 21:15] VITALS: BP 130/84
--- NOTE | 2024-03-30 21:57 | NUR ---
ARRIVAL TO PCU AFTER RECEIVING REPORT FROM ED RN, PATIENT TRANSFERRED TO PCU AT APPROX 2100. PATIENT TRANSFERRED FROM ED GURNEY TO BED WITH SLIDER SHEET. IS ALERT AND ORIENTED X1-2. SOFT VOICE, WEAK COUGH NOTED. SUCTION AT BEDSIDE. DIFFICULTY ANSWERING QUESTIONS - IS ABLE TO RESPOND AT TIMES TO SIMPLE YES/NO QUESTIONS. PERRLA. MOVES ALL EXTREMITIES WITH WEAKNESS T/O. ADMIT HX GATHERED FROM ED DOCUMENTATION, PREVIOUS ADMISSIONS. MULTIPLE BLOODY SORES T/O MOUTH AND LIPS. ORAL CARE PROVIDED - IS PAINFUL. DENTAL HYGENIST CONSULT IN PLACE. TELEMETRY SHOWING SINUS TACH 100s-110s. BP STABLE. ON 3L VIA NC, SATs >90%. BLOOD GLUCOSE ELEVATED, LAST POC GLUCOSE 398. ORDERS IN PLACE W/ Q6 CBG CHECKS. INCONTINENT OF URINE - ATTENDS IN PLACE. UNABLE TO PLACE CONDOM CATHETER D/T SMALL SKIN TEAR ON PENIS. NO REDNESS NOTED ON COCCYX. CALL LIGHT IN REACH. BED ALARM ON. IVF INFUSING PER EMAR.
[2024-03-30] MEDS ORDERED: Insulin Glargine-Yfgn 100 Unit/mL 3 ML SYR SC SCH (22:00)
[2024-03-30 23:04] VITALS: BP 124/83
[2024-03-30 23:11] LABS: Hematocrit 26.6 % (37.0-53.0); Hemoglobin 8.4 g/dL (13.5-17.5); Mean Platelet Volume 11.8 fL (9.1-12.4)
[2024-03-30 23:33] LABS: Platelet Count 23 K/mm3 (150-400)
[2024-03-31] MEDS ORDERED: Insulin Regular 100 UNIT/ML 10ML Vial SC SCH
[2024-03-31] MEDS ORDERED: Insulin Glargine-Yfgn 100 Unit/mL 3 ML SYR SC ONE (00:05)
[2024-03-31] MEDS ORDERED: Ipratropium/Albuterol SulF 2.5-0.5MG/3 ML Amp INH ONE (02:15)
[2024-03-31] MEDS ORDERED: Morphine Sulfate 10 MG/ML 1MLSYR INH PRN (03:00)
[2024-03-31] MEDS ORDERED: Scopolamine Hydrobromide Patch TOP PRN ×2 (03:05→09:05)
[2024-03-31 03:23] VITALS: BP 129/81
[2024-03-31] MEDS ORDERED: Morphine Sulfate 20 MG/1ML 1 ML Oral Syringe PO ONE (04:00)
[2024-03-31] MEDS ORDERED: Morphine Sulfate 20 MG/1ML 1 ML Oral Syringe PO PRN (04:00)
[2024-03-31 05:10] LABS: Hemoglobin 8.3 g/dL (13.5-17.5); Mean Corpuscular HGB 32.3 pg (26.0-34.0); Mean Corpuscular HGB Conc 33.2 g/dL (31.5-36.5); Mean Corpuscular Volume 97 fL (80-100); RDW Standard Deviation 50.1 fL (35.1-46.3); Red Blood Cell Count 2.57 M/mm3 (4.30-5.90); White Blood Cell Count 1.44 K/mm3 (4.00-11.30)
[2024-03-31] MEDS ORDERED: NS 500 ML IV SCH (05:10)
[2024-03-31 05:18] LABS: BAND PERCENT MAN 10 % (0-8); BASOPHILS PERCENT MAN 0 % (0-2); EOSINOPHILS ABSOLUTE MAN 0.02 K/mm3 (0.00-0.68); EOSINOPHILS PERCENT MAN 2 % (0-6); LYMPHOCYTES ABSOLUTE MAN 0.37 K/mm3 (0.84-5.20); LYMPHOCYTES PERCENT MAN 26 % (21-46); METAMYELOCYTE ABSOLUTE MAN 0.02 K/mm3 (0.00-0.00); METAMYELOCYTE PERCENT MAN 2 % (0-0); MONOCYTES ABSOLUTE MAN 0.05 K/mm3 (0.16-1.47); MONOCYTES PERCENT MAN 4 % (4-13); NEUTROPHILS ABSOLUTE MAN 0.95 K/mm3 (1.96-9.15); SEG NEUTROPHILS PERCENT MAN 56 % (41-73); TOTAL CELLS COUNTED 50
[2024-03-31 05:20] LABS: Platelet Count 19 K/mm3 (150-400)
[2024-03-31 05:24] VITALS: BP 116/74
[2024-03-31 05:27] LABS: Magnesium, Blood 2.8 mg/dL (1.6-2.4); Uric Acid, Blood 8.6 mg/dL (3.5-7.2)
[2024-03-31 05:45] VITALS: BP 130/77
--- NOTE | 2024-03-31 06:03 | NUR ---
SHIFT SUMMARY NO ACUTE EVENTS SINCE ARRIVAL TO PCU. PATIENT REMAINS ALERT AND ORIENTED X1-2. SEEMS TO HAVE SMALL MOMENTS OF MORE CLARITY. PERRLA. SOFT SPEECH, DIFFICULTY COMMUNICATING NEEDS EFFECTIVELY. IS ABLE TO NOD YES/NO TO SOME QUESTIONS. TELEMETRY SHOWING SINUS TACH 110s. BP STABLE. ON ROOM AIR, SATs >90%. EXPERIENCE X1 EPISODE OF INCREASED SHORTNESS OF BREATH, CONTINUED WEAK COUGH. MD CONTACTED, RECEIVIED ORDER FOR X1 DUONEB, RT ADMINISTERED. WORK OF BREATHING HAS IMPROVED WITH ROXANOL AND SCOPOLAMINE PATCH ADMINISTERED PER EMAR. X1 UNIT OF PLATELETS ADMINISTERED. MD TO BEDSIDE PRIOR FOR CONSENT. ORDER FOR 2 UNITS - PER BLOOD BANK, ONLY ABLE TO ADMINISTER X1 UNIT AT THIS TIME WITH PLAN TO ADMINISTER ADDITIONAL UNIT TODAY. MD AWARE. INCONTINENT OF URINE, CHANGING ATTENDS PRN TO KEEP C/D/I. Q2H REPOSITIONING. CALL LIGHT IN REACH. BED ALARM ON. WILL CONTINUE TO MONITOR AND REPORT TO ONCOMING RN.
[2024-03-31 06:15] LABS: Albumin, Blood 2.2 g/dL (3.4-5.0); Albumin/Globulin Ratio 0.6 (0.8-1.8); Bilirubin, Total 3.2 mg/dL (0.1-1.0); Bun/Creatinine Ratio 61.3 (12.0-20.0); Calcium, Blood 8.7 mg/dL (8.5-10.1); Creatinine, Blood 1.11 mg/dL (0.60-1.20); Globulin, Blood 3.9 g/dL (2.2-4.0); Phosphorus, Blood 4.2 mg/dL (2.5-4.9); Potassium, Blood 4.6 mmol/L (3.5-5.5); Total Protein, Blood 6.1 g/dL (6.4-8.2)
[2024-03-31 07:43] VITALS: BP 129/73
[2024-03-31] MEDS ORDERED: DULoxetine HCL 60 MG Capsule DR PO SCH (09:00)
[2024-03-31] MEDS ORDERED: Tamsulosin HCl 0.4 MG Cap PO SCH (09:00)
[2024-03-31] MEDS ORDERED: Morphine Sulfate 20 MG/1ML 1 ML Oral Syringe SL PRN (09:00)
[2024-03-31] MEDS ORDERED: NINTEDANIB 150 MG PO SCH (09:00)
[2024-03-31] MEDS ORDERED: Rosuvastatin Calcium 10 MG Tab PO SCH (09:00)
[2024-03-31] MEDS ORDERED: Metoprolol Succinate 50 MG TABCR PO SCH (09:00)
[2024-03-31] MEDS ORDERED: Sennosides 8.6 MG Tab PO SCH (09:00)
[2024-03-31] MEDS ORDERED: Pregabalin 75 MG Cap PO SCH (09:00)
[2024-03-31] MEDS ORDERED: Ondansetron HCl 2 MG / ML 2ML Vial IV PRN (09:00)
[2024-03-31] MEDS ORDERED: Acetaminophen 650 MG Supp PR PRN (09:05)
[2024-03-31] MEDS ORDERED: Atropine Sulfate 1% Opth Soln 2ML BTL SL PRN (09:05)
[2024-03-31] MEDS ORDERED: LORazepam 2 MG/ML 1ML Injection IV PRN (09:10)
--- NOTE | 2024-03-31 12:28 | NUR ---
Spiritual care visit conducted. Patient is lying in bed and asleep and his spouse of 54 yrs, Berenice, is bedside. Berenice is tearful at times as she reflects upon their life together, the patient's love and [employer] nick and how she will possibly carry on without him. We discuss coping skills and resources, spiritual pathways to peace and strength and ways to begin managing grief. We discuss being present in the moment and the plans for D/C. Berenice responded well and showed signs of reduced stress and greater peace. I will continue to remain available.
--- NOTE | 2024-03-31 14:05 | NUR ---
PT TRANSITIONED TO DNR COMFORT CARE. PT STARTED ON COMFORT MEDS. PT WAS RESTLESS AND AGITATED THIS MORNING ATIVAN 1MG DOSE WAS GIVEN. PT CALMED DOWN AND TOOK A NAP FOR A COUPLE OF HOURS AND STARTED WAKING UP AGAIN. PT WAS RESPOSITIONED, ATROPINE DROPS STARTED FOR SECRETIONS. PT WAS MOANING AND GROANING AGAIN ROXANOL 50MG WAS GIVEN. HAS BEEN AT THE BEDSIDE SINCE THIS MORNING, AND WAS GIVEN INFORMATION ABOUT TRANSITION PROCESS SO CAN BE READY ANYTIME. PT WAS TRANSFERRED TO 333, ALL BELONGINGS SENT WITH THE PT
--- NOTE | 2024-03-31 18:22 | NUR ---
Spiritual Care | Comfort Care follwo up Pt. is mostly non repsonsive. Spouse is at bedside, when this educational speech language clinician was called to support the Spouse. A genetleman form the Pts. hoahaoism is also present. Facilitae a life review and speak about the Pts. nick. Friend verbalized that the Pt. had "made his peace with God." Prayed with Pt. and spouse. Will remain available to the family. Spouse and friend both verbalize gratitude for the spiritual care visit.
--- NOTE | 2024-03-31 18:25 | NUR ---
SHIFT SUMMARY PT ADMITED FROM PCU THIS SHIFT ON COMFORT CARES. PT NOTED TO HAVE MOTTLING NOTED TO BILAT KNEES.
--- NOTE | 2024-03-31 22:25 | NUR ---
SUMMARY- PT AT 2114 HRS. CONTROL OPERATOR FLOW COAT AND PROVIDER NOTIFIED. CONFIRMATION OF WAS COMPLETED BY THIS RN AND Ella CHANDLER RN. PT PULSELESS, APNEIC WITH FIXED AND DIALATED PUPILS. FAMILY REFUSED PASTURAL CARE. HANDLING OF REMAINS BY REQUEST IS [facility]. PT BELONGINGS COLLECTED BY FAMILY.
== END 2024-03-31 21:15 | DRG 180 ==
LOC: ER 15:57 → PCU 19:58 → MEDS 03-31 13:45
PROVIDERS: Emergency Medicine; ADMIT Student in an Organized Health Care Education/Training Program
PROC: 6A550Z2 Pheresis of Platelets, Single (ICD-10-PCS; principal; 2024-03-30)
DX: C34.12 Malignant neoplasm of upper lobe, left bronchus or lung (principal); D61.810 Antineoplastic chemotherapy induced pancytopenia; J91.0 Malignant pleural effusion; C78.2 Secondary malignant neoplasm of pleura; N17.9 Acute kidney failure, unspecified; R64 Cachexia; F03.C11 Unspecified dementia, severe, with agitation; D62 Acute posthemorrhagic anemia; F03.C4 Unspecified dementia, severe, with anxiety; C91.11 Chronic lymphocytic leukemia of B-cell type in remission; G47.00 Insomnia, unspecified; F41.9 Anxiety disorder, unspecified; Z51.5 Encounter for palliative care; Z66 Do not resuscitate; J44.9 Chronic obstructive pulmonary disease, unspecified; K21.9 Gastro-esophageal reflux disease without esophagitis; E11.22 Type 2 diabetes mellitus with diabetic chronic kidney disease; I12.9 Hypertensive chronic kidney disease with stage 1 through stage 4 chronic kidney disease, or unspecified chronic kidney disease; N40.0 Benign prostatic hyperplasia without lower urinary tract symptoms; E86.0 Dehydration; D63.0 Anemia in neoplastic disease; E78.5 Hyperlipidemia, unspecified; M54.2 Cervicalgia; Z98.52 Vasectomy status; Z98.890 Other specified postprocedural states; Z87.891 Personal history of nicotine dependence; Z88.8 Allergy status to other drugs, medicaments and biological substances; Z79.4 Long term (current) use of insulin; Z79.84 Long term (current) use of oral hypoglycemic drugs; Z79.899 Other long term (current) drug therapy; K13.79 Other lesions of oral mucosa; J84.112 Idiopathic pulmonary fibrosis; N18.2 Chronic kidney disease, stage 2 (mild); Z68.29 Body mass index [BMI] 29.0-29.9, adult; E11.65 Type 2 diabetes mellitus with hyperglycemia
CPT/HCPCS: 0241U; 36415; 36430; 71045; 74177; 80053; 82607; 82746; 82947; 83690; 83735; 84100; 84550; 85014; 85018; 85025; 85049; 85610; 85730; 86850; 86900; 86901; 93005; 93010; 94640; 94664; 94762; 96361; 96374-59; 96375; 99285-25; A9270; C9113; J1815; J2060; J2405; J7030; J7120; P9035; Q9967